=== PATIENT | male | born 1995 | race Caucasian/White ===

== ENCOUNTER → 2025-03-26 10:14 | Emergency (ER) | payer OTHER, SELFPAY ==
[2025-03-26 10:16] VITALS: BP 123/87
--- NOTE | 2025-03-26 11:13 | ED.GENMED ---
History of Present Illness
General
Chief Complaint: Abdominal Pain
Time Seen by Provider: 03/26/25 10:52
History of Present Illness
History of Present Illness:
29-year-old male with prior history of kidney stones here today for 4 days of fairly constant left-sided lower abdominal pain. He also reports left flank pain. He has noted discomfort with urination but denies gross hematuria. No fevers. No
vomiting. No other acute complaints.
Review of Systems
Review of Systems
All Other Systems: ROS reviewed and negative except as documented in HPI and ROS
Phy Exam
Physical Exam
Physical Exam:
GENERAL: Alert , in no apparent distress
NECK: Supple
ENT: o/p clr, mmm.
ABDOMEN: Soft, without focal tenderness, no r/g, left CVAT
NEUROLOGICAL: Alert and oriented, no focal neuro deficits
SKIN: Warm and dry, skin intact.
MUSCULOSKELETAL: No edema, well perfused.
PSYCH: Normal and appropriate interaction.
Course
Orders/Labs/Results
Orders:
Orders
03/26/25 11:13
CT Abd/pel Without Iv Or Oral Urgent
Comment:
Reason For Exam: left flank pain, llq abd pain, hx of stones
0.9% Sodium Chloride 1000 ml [Nss] 1,000 ml IV BOLUS
Ketorolac [Toradol] 15 mg IV NOW STA
03/26/25 11:24
Basic Metabolic Panel Urgent
Complete Blood Count/With Diff Urgent
Urinalysis Reflex To Culture Urgent
Date Specimen was Collected: 03/26/25
Time Specimen was Collected: 11:21
Urine Microscopic Reflex Cult Urgent
03/26/25 13:04
Tamsulosin [Flomax] 0.4 mg PO NOW STA
Abnormal Lab Results
03/26/25
11:24
MCH 32.0 H pg
(27.0-31.0)
MPV 11.8 H fL
(7.4-10.4)
Absolute Lymphs (auto) 0.7 L 10^3/uL
(1.2-3.4)
Absolute Monos (auto) 1.0 H 10^3/uL
(0.1-0.6)
Lymphocytes % 11.5 L %
(20.5-51.1)
Monocytes % 17.3 H %
(1.7-9.3)
Glucose 107 H mg/dl
(70-99)
Ur Occult Blood Reflex 4+ A
(Negative)
Urine RBC 60-70 A /HPF
(0-2)
03/26/25 11:24
03/26/25 11:24
Vital Signs
Initial and Last Documented VS:
Initial Vital Signs
Temp Pulse Resp BP Pulse Ox
98.4 F 103 20 123/87 99
03/26/25 10:16 03/26/25 10:16 03/26/25 10:16 03/26/25 10:16 03/26/25 10:16
Last Documented Vital Signs
Temp Pulse Resp BP Pulse Ox
98.2 F 70 21 124/75 99
03/26/25 12:46 03/26/25 11:45 03/26/25 11:45 03/26/25 11:16 03/26/25 11:30
MDM/Problems Addressed
Differential Diagnosis Includes:
29-year-old male with prior history of kidney stones here today for 4 days of fairly constant left-sided lower abdominal/flank pain. Overall, patient appears well. On examination he is mildly tender along the left CVA. No abdominal tenderness.
Findings at this time are concerning for a ureteral stone. Will initiate workup.
03/26/2025 13:05: Screening labs reveal hematuria. No leukocytosis. Normal creatinine. CT scan of the abdomen and pelvis reveals a left UVJ stone approximately 5 mm in size. There are additional stones along the left kidney noted. Largest
measuring 3 mm. No evidence of obstruction. There is also slight enlargement of the prostate. Patient reassessed at bedside. He reports improvement of symptoms overall. He is able to tolerate p.o. appropriately. No vomiting. Pain is
well-controlled. No evidence of acute kidney injury. No findings of infection. The patient appears well and suitable for outpatient medical expulsion therapy. We will provide Flomax and prescription ibuprofen. Recommend increasing oral
hydration. Will provide urine strainer. Recommend supportive measures and outpatient urology follow-up. All questions answered. Stable for discharge.
*Pulse Oximetry
SaO2: 99
Oxygen Mode of Delivery: Room air
Patient hypoxic: no
*Critical Care Note
Total Time (30-74mins, 75-104mins- exclusive of procedures): Not Applicable
ED Attending Note
-
Portions of this chart may have been created with voice recognition software.� Occasional wrong word or��sound alike� substitutions may have occurred due to the inherent limitations of voice recognition software.
Discharge Plan
Departure
Patient Disposition: Home (Routine Discharge)
Date of Disposition: 03/26/25
Time of Disposition: 13:18
Patient with high blood pressure during this ER visit?: No
Condition: Good
Discharge Problem:
Calculus of left ureter
Instructions: Kidney Stones (DC)
Prescriptions:
New
tamsulosin [Flomax] 0.4 mg capsule
0.4 mg PO DAILY 30 Days Qty: 30 0RF
ibuprofen 600 mg tablet
600 mg PO Q6H PRN (Reason: Pain) 5 Days Qty: 20 0RF
Referrals:
Shubham Tolbert MD [Family Provider, Internal Medicine] - Follow up in 2-3 days
Matheus Wright MD [Active, Urology] - Follow up in 1 week
Activity Restrictions/Additional Instructions:
You were seen today for evaluation of left flank pain.
Your CAT scan reveals a 5 mm stone in your left ureter.
We are discharging you with prescriptions for pain medication with ibuprofen to take as directed as needed. We are also prescribing a medication called Flomax (tamsulosin) to help you pass the stone.
Follow-up with a urologist as an outpatient within the next 7 to 10 days for close reevaluation.
Return for any new, worsening, or concerning symptoms.
Interventions
Interventions:
*Risk Screen - Suicide Last Done: 03/26/25 10:16
*General Assessment Last Done: 03/26/25 10:16
*Neglect/Abuse Screening Last Done: 03/26/25 10:59
*ED- Fall Risk Assessment Last Done: 03/26/25 10:59
UI-Dfpqjm-Qduwnvlobn Assessment Last Done: 03/26/25 11:42
Discharge Date and Time
Print Language: IRISH
[2025-03-26 11:16] VITALS: BP 124/75
[2025-03-26] MEDS: NSS 1000 IV (11:25)
[2025-03-26] MEDS: TORADOL 15 MG IV (11:29)
[2025-03-26 11:32] VITALS: BMI 24.5
[2025-03-26 11:39] LABS: Hematocrit 44.7 % (39.0-52.0); Hemoglobin 15.3 g/dL (13.0-18.0); Mean Corp Hgb Conc. 34.2 g/dL (33.0-37.0); Mean Corpuscular Volume 93.5 fL (80.0-94.0); Nucleated Red Blood Cells % 0 % (-); Platelet Count 159 10^3/uL (130-400); Red Cell Dist. Width 12.5 % (11.5-14.5)
[2025-03-26 11:53] LABS: Blood Urea Nitrogen 15 mg/dl (9-20); Calcium 9.8 mg/dl (8.4-10.2); Carbon Dioxide 30 mmol/L (22-30); Chloride 101 mmol/L (98-107); Estimated Creatinine Clearance > 125 ml/min; Glucose 107 mg/dl (70-99); Potassium 5.0 mmol/L (3.5-5.1); Sodium 140 mmol/L (135-145); eGFR > 60.00
[2025-03-26 11:54] LABS: Urine Character Clear (Clear)
[2025-03-26 12:37] VITALS: BP 122/84
[2025-03-26 12:40] LABS: Urine Urothelial Cell 0-2 /LPF (FEW)
[2025-03-26 12:42] LABS: Urine Red Blood Cell 60-70 /HPF (0-2)
[2025-03-26 13:00] VITALS: BP 104/69
[2025-03-26] MEDS: FLOMAX 0.4 MG PO (13:16)
== END | disposition home or self-care (01) ==
LOC: EMR 10:14
PROVIDERS: Physician Assistant; EMERGENCY PHYSICIAN Emergency Medicine; FAMILY PHYSICIAN Internal Medicine
DX: N20.1 Calculus of ureter (principal); R10.30 Lower abdominal pain, unspecified; Z87.442 Personal history of urinary calculi
CPT/HCPCS: 99284; 96374; 96361; 74176; 80048; 81003; 81015; 85025